=== PATIENT | male | born 1940 | race Caucasian/White ===

== ENCOUNTER 2016-12-03 11:00 | Emergency (ER) | payer MEDICARE, OTHER ==
[~2016-12-03] VITALS: Ht 175.3 cm; Wt 79.5 kg
[~2016-12-03 11:00] MED LIST: ASPIRIN 32325 MG/TAB PO; FLOMAX 0.40.4 MG/CAP PO; FLONASE NASAL S16 GM NS; LORTAB ELIX0.5 MG/ML PO; NASONEX SPRAY17 GM NS; NUTREN PO; PILOCARPINE5 MG PO; PRILOSEC 20MG20 MG PO; SYNTHROID0.05 MG/TA PO
[2016-12-03 11:10] VITALS: TEMP 97.3
[2016-12-03 11:37] LABS: BASO # 0.1 (0.0-0.2); EOS # 0.3 (0.0-0.7); EOS % 4.3 % (0-4.0); GRAN # 3.4 (1.4-6.5); GRAN % 53.8 % (42.2-75.2); HEMATOCRIT 42.9 % (42.0-52.0); HEMOGLOBIN 14.4 g/dl (13.5-18.0); LYMPH # 1.9 (1.2-3.4); LYMPH % 29.6 % (20.0-51.0); MEAN CELL VOLUME 95 fl (80.0-100.0); MEAN CORPUSCULAR HEMOGLOBIN 32 pg (27.0-31.0); MEAN CORPUSCULAR HGB CONC 34 g/dl (33.0-37.0); MEAN PLATELET VOLUME 9.8 fl (7.4-10.4); MONO # 0.7 (0.1-0.6); MONO % 10.8 % (1.7-9.3); PLATELET COUNT 209 K/mm3 (130-400); REDCELL DISTRIBUTION WIDTH-CV 12.7 % (11.5-14.5); WHITE BLOOD COUNT 6.3 K/mm3 (4.8-10.8)
[2016-12-03 11:50] LABS: ADJUSTED CALCIUM 9.5 mg/dL (8.4-10.2); ALANINE AMINOTRANSFERASE 43 U/L (21-72); ALBUMIN 4.1 gm/dL (3.5-5.0); ALKALINE PHOSPHATASE 104 U/L (50-136); ANION GAP 9 mmol/L (7-16); BILIRUBIN,TOTAL 0.7 mg/dL (0.0-1.0); BLOOD UREA NITROGEN 15 mg/dL (9-20); CALCIUM 9.6 mg/dL (8.4-10.2); CARBON DIOXIDE 29 mmol/L (22-30); CHLORIDE 94 mmol/L (98-107); CREATININE, serum 0.53 mg/dL (0.66-1.25); GLUCOSE 89 mg/dL (74-106); POTASSIUM 4.7 mmol/L (3.4-5.0); SODIUM 132 mmol/L (137-145)
[2016-12-03 12:01] LABS: B-TYPE NATRIURETIC PEPTIDE 133 pg/mL (0-450)
[2016-12-03 12:06] LABS: TROPONIN-I < 0.012 ng/mL (0.000-0.034)
[2016-12-03 12:50] LABS: PROTHROMBIN TIME 11.2 SECONDS (9.7-12.8)
[2016-12-03 12:53] LABS: PARTIAL THROMBOPLASTIN TIME 32.8 SECONDS (26.0-37.0)
[2016-12-03 16:00] VITALS: BP 122/81; PULSE 79
[2016-12-03] MEDS ORDERED: TYLENOL/CODEINE1 ML PO (16:39)
== END 2016-12-03 16:04 | disposition home or self-care (01) ==
LOC: COL.ER 11:00
PROVIDERS: Emergency Medicine
DX: R07.89 Other chest pain (principal); I10 Essential (primary) hypertension; Z87.891 Personal history of nicotine dependence
CPT/HCPCS: Q9967

== ENCOUNTER 2017-01-02 05:14 | Day surgery (SDC) | payer MEDICARE, OTHER ==
[~2017-01-02] VITALS: Ht 175.3 cm; Wt 85.4 kg
[2017-01-02] VITALS (9 sets, daily range): BP systolic 62–159; BP diastolic 39–88; PULSE 58–77; TEMP 97.3–97.7
[~2017-01-02 05:14] MED LIST changes: +TYLENOL/CODEINE1 ML PO
[2017-01-02] MEDS ORDERED: TYLENOL 325MG325 MG PO (06:52)
[2017-01-02] MEDS ORDERED: PRINIVIL10 MG PO (06:53)
[2017-01-02] MEDS ORDERED: NAPROSYN500 MG PO (09:27)
[2017-01-02] MEDS ORDERED: COLACE 100100 MG/CAP PO (09:27)
[2017-01-02] MEDS ORDERED: ZOFRAN 4MG T4 MG/TAB PO (09:28)
== END 2017-01-02 13:30 | disposition home or self-care (01) ==
LOC: SDCO 05:14
DX: G56.01 Carpal tunnel syndrome, right upper limb (principal); G56.21 Lesion of ulnar nerve, right upper limb; M65.321 Trigger finger, right index finger; M65.341 Trigger finger, right ring finger; Z85.818 Personal history of malignant neoplasm of other sites of lip, oral cavity, and pharynx; Z87.01 Personal history of pneumonia (recurrent); E07.9 Disorder of thyroid, unspecified; Z79.82 Long term (current) use of aspirin; Z79.899 Other long term (current) drug therapy
CPT/HCPCS: J2250; J2370; J2704; J2795; J7120

== ENCOUNTER → 2017-07-03 | Outpatient (CLI) | payer MEDICARE, OTHER ==
[~2017-07-03] MED LIST changes: +COLACE 100100 MG/CAP PO; +NAPROSYN500 MG PO; +PRINIVIL10 MG PO; +TYLENOL 325MG325 MG PO; +ZOFRAN 4MG T4 MG/TAB PO
== END ==
LOC: COL.VAS 09:34
DX: I70.209 Unspecified atherosclerosis of native arteries of extremities, unspecified extremity (principal)

== ENCOUNTER → 2018-01-12 | Outpatient (REF) | LOC: ZLAB.WCH 14:26 | DX: Z01.89 Encounter for other specified special examinations (principal) | CPT/HCPCS: G0103 ==

== ENCOUNTER → 2018-03-09 | Outpatient (REF) | LOC: ZLAB.WCH 09:25 | DX: Z01.89 Encounter for other specified special examinations (principal) ==

== ENCOUNTER → 2018-07-15 | Outpatient (REF) | LOC: ZLAB.WCH 16:09 | DX: Z01.89 Encounter for other specified special examinations (principal) | CPT/HCPCS: G0103 ==

== ENCOUNTER → 2018-08-27 | Outpatient (REF) | LOC: ZLAB.WCH 16:30 | DX: Z01.89 Encounter for other specified special examinations (principal) ==

== ENCOUNTER → 2018-12-17 | Outpatient (REF) | LOC: ZLAB.WCH 15:53 | DX: Z01.89 Encounter for other specified special examinations (principal) | CPT/HCPCS: G0103 ==

== ENCOUNTER 2019-12-20 09:10 | Day surgery (SDC) | payer MEDICARE, OTHER ==
[~2019-12-20] VITALS: Ht 175.3 cm; Wt 91.6 kg
[2019-12-20 09:40] VITALS: BP 151/80; PULSE 64; TEMP 97.6
[2019-12-20] MEDS ORDERED: SALAGEN 5MG TAB5 MG PO (09:53)
[2019-12-20] MEDS ORDERED: NASONEX SPRAY17 GM NS (09:54)
[2019-12-20] MEDS ORDERED: LIPITOR 40MG TA40 MG PO (09:56)
[2019-12-20] MEDS ORDERED: LOPRESSOR 225 MG/TAB PO (09:57)
[2019-12-20] MEDS ORDERED: TYLENOL 500MG500 MG PO (10:01)
--- NOTE | 2019-12-20 10:35 | NUR ---
Dr Meléndez to to change PEG tube.
--- NOTE | 2019-12-20 10:45 | NUR ---
DR FLAHERTY DONE WITH PLACING PEG TUBE.
[2019-12-20 10:50] VITALS: BP 151/80; PULSE 66; TEMP 97.3
--- NOTE | 2019-12-20 10:50 | NUR ---
PATIENT TALKING WITH STAFF AND HIS . DENIES PAIN OR DISCOMFORT. 4X4 OVER INCISION PEG TUBE, NO DRAINAGE AT THIS TIME.
--- NOTE | 2019-12-20 11:00 | NUR ---
DR FLAHERTY INTO TALK WITH PATIENT PRIOR TO BEING DISCHARGED.
--- NOTE | 2019-12-20 11:08 | NUR ---
DISCHARGED PER AMBULATING SELF OUT ACCOMPANIED WITH .
== END 2019-12-20 11:16 | disposition home or self-care (01) ==
LOC: SDCO 09:10
DX: K94.23 Gastrostomy malfunction (principal); Z85.819 Personal history of malignant neoplasm of unspecified site of lip, oral cavity, and pharynx; Z85.46 Personal history of malignant neoplasm of prostate
CPT/HCPCS: 26580; B4087

== ENCOUNTER → 2020-06-16 | Emergency (ER) | payer MEDICARE, OTHER ==
[~2020-06-16] VITALS: Ht 175.3 cm; Wt 84.1 kg
[~2020-06-16] MED LIST changes: -ASPIRIN 32325 MG/TAB PO; +ASPIRIN 81M81 MG/TA2 PO; +KAPSPARGO SPRIN25 MG PO; +LIPITOR 40MG TA40 MG PO; +LOPRESSOR 225 MG/TAB PO; +PROSCAR 5MG5 MG; +SALAGEN 5MG TAB5 MG PO; +TYLENOL 500MG500 MG PO; +ZESTRIL 10MG10 MG PO; +ZOFRAN ODT4 MG PO
[2020-06-16 12:00] LABS: COLLECTION METHOD CLEAN CATCH
[2020-06-16 12:19] LABS: MUCOUS Present /lpf; PH 7 (5-8); SQUAMOUS EPITHELIAL None Seen /hpf; URINE APPEARANCE Clear; URINE BACTERIA None Seen /hpf; URINE BILIRUBIN Negative (NEGATIVE); URINE BLOOD Negative (NEGATIVE); URINE COLOR Straw; URINE GLUCOSE Negative (NEGATIVE); URINE KETONE Negative (NEGATIVE); URINE LEUKOCYTE ESTERASE Negative (NEGATIVE); URINE NITRATE Negative (NEGATIVE); URINE PROTEIN(semi-quant) Negative (NEGATIVE); URINE UROBILINOGEN Negative (NEGATIVE)
[2020-06-16 12:21] LABS: ALANINE AMINOTRANSFERASE 21 U/L (4-49); ALBUMIN 4.1 gm/dL (3.5-5.0); ALKALINE PHOSPHATASE 143 U/L (50-136); ANION GAP 8 mmol/L (7-16); AST,SGOT 38 U/L (15-37); BILIRUBIN,TOTAL 0.7 mg/dL (0.0-1.0); BLOOD UREA NITROGEN 13 mg/dL (9-20); CALCIUM 9.4 mg/dL (8.4-10.2); CARBON DIOXIDE 29 mmol/L (22-30); CHLORIDE 90 mmol/L (98-107); GLUCOSE 89 mg/dL (74-106); LIPASE 61 U/L (23-300); MAGNESIUM 1.9 mg/dL (1.6-2.3); POTASSIUM 4.8 mmol/L (3.4-5.0); SODIUM 127 mmol/L (137-145); TOTAL PROTEIN 7.2 gm/dL (6.4-8.2)
[2020-06-16 12:23] LABS: BASO # 0.1 (0.0-0.2); BASO % 0.9 % (0.0-2.0); EOS # 0.3 (0.0-0.7); EOS % 4.9 % (0-4.0); GRAN # 3.5 (1.4-6.5); GRAN % 63.5 % (42.2-75.2); HEMATOCRIT 40.5 % (42.0-52.0); HEMOGLOBIN 13.3 g/dl (13.5-18.0); LYMPH % 17.8 % (20.0-51.0); MEAN CELL VOLUME 100 fl (80.0-100.0); MEAN CORPUSCULAR HEMOGLOBIN 33 pg (27.0-31.0); MEAN CORPUSCULAR HGB CONC 33 g/dl (33.0-37.0); MEAN PLATELET VOLUME 9.9 fl (7.4-10.4); MONO # 0.7 (0.1-0.6); MONO % 12.5 % (1.7-9.3); PLATELET COUNT 205 K/mm3 (130-400); RED BLOOD COUNT 4.07 M/mm3 (4.20-5.60); REDCELL DISTRIBUTION WIDTH-CV 12.3 % (11.5-14.5)
[2020-06-16 12:33] LABS: TROPONIN-I < 0.012 ng/mL (0.000-0.035)
[2020-06-16 12:38] LABS: PROTHROMBIN TIME 11.2 SECONDS (9.7-12.8)
[2020-06-16 12:41] LABS: PARTIAL THROMBOPLASTIN TIME 30.8 SECONDS (26.0-37.0)
[2020-06-16 15:42] VITALS: BP 188/102; PULSE 79; TEMP 17
== END ==
LOC: COL.ER 10:14
PROVIDERS: Emergency Medicine
DX: R51 Headache (principal)
CPT/HCPCS: J7030